=== PATIENT | female | born 1945 | race Caucasian/White ===

== ENCOUNTER 2018-07-25 19:27 | Inpatient (IN) | payer MEDICARE, OTHER ==
[~2018-07-25] VITALS: Ht 149.9 cm; Wt 52.4 kg
[2018-07-25] MEDS ORDERED: SODIUM CHLORIDE 0.9% 1,000ML IVBOLUS ONE (20:00)
[2018-07-25] MEDS ORDERED: ACETAMINOPHEN 325 MG TABLET PO ONE (20:00)
[2018-07-25] MEDS ORDERED: SODIUM CHLORIDE FLUSH 10ML SYR IVF ONE (20:00)
[2018-07-25 20:06] LABS: BASOPHILS # (AUTO) 0.04 x10^3/uL (0-0.1); BASOPHILS % (AUTO) 1 % (0-1); EOSINOPHILS # (AUTO) 0.07 x10^3/uL (0-0.4); EOSINOPHILS % (AUTO) 1 % (1-7); LYMPHOCYTES # (AUTO) 1.12 x10^3/uL (1-3.4); LYMPHOCYTES % (AUTO) 15 % (22-44); MD NO; MEAN CORPUSCULAR HEMOGLOBIN 32.6 pg (27.0-34.8); MEAN CORPUSCULAR HGB CONC 32.4 g/dL (32.4-35.8); MEAN CORPUSCULAR VOLUME 100.7 fL (80-100); MEAN PLATELET VOLUME 7.5 fL (7.4-10.4); MONOCYTES % (AUTO) 13 % (2-9); NEUTROPHILS % (AUTO) 71 % (42-75); PLATELET COUNT 309 x10^3/uL (130-400); RED CELL DISTRIBUTION WIDTH 13.2 % (9.6-15.2)
[2018-07-25] MEDS ORDERED: ACETAMINOPHEN 325 MG TABLET ONE (20:14)
[2018-07-25 20:18] LABS: ALBUMIN 3.9 g/dL (3.4-5.0); ANION GAP 7 mmol/L (5-15); CALCIUM 8.6 mg/dL (8.5-10.1); CHLORIDE 106 mmol/L (98-107)
--- NOTE | 2018-07-25 20:20 | NUR ---
IVs STARTED. BLOOD CULTURES HAVE BEEN DRAWN. PT PLACED ON CARDIAC AND VITALS MONITORS. PT IN HOSPITAL GOWN. ORDERED FLUIDS AND MEDS GIVEN. CALL LIGHT WITHIN REACH.
[2018-07-25] MEDS ORDERED: TIOT4MIS5 INH (20:21)
[2018-07-25 20:23] LABS: ALANINE AMINOTRANSFERASE 23 U/L (12-78); ALKALINE PHOSPHATASE 66 U/L (45-117); BILIRUBIN,TOTAL 0.3 mg/dL (0.2-1.0); CREATININE 1.24 mg/dL (0.55-1.02); TOTAL PROTEIN 7.4 g/dL (6.4-8.2); TROPONIN I < 0.015 ng/mL (0.000-0.045)
--- NOTE | 2018-07-25 21:00 | NUR ---
PT NOT FAMILIAR WITH MED NAMES AND DOSES. MED REQ UPDATED BEST POSSIBLE AT THIS TIME.
[2018-07-25] MEDS ORDERED: AZITHROMYCIN 500 MG in SODIUM CHLORIDE 0.9% 250 ML IV ONE (21:30)
[2018-07-25] MEDS ORDERED: CEFTRIAXONE PMX 1GM/50ML 50 ML ONE (21:34)
--- NOTE | 2018-07-25 21:50 | NUR ---
ABX STARTED. PT ABLE TO AMBULATE TO BATHROOM ON HER OWN STEADILY. PT TO BE ADMITTED, PT AWARE. WILL CONTINUE TO MONITOR.
[2018-07-25] MEDS ORDERED: CEFTRIAXONE PMX 1GM/50ML 50 ML IVPB ONE (22:30)
--- NOTE | 2018-07-25 22:41 | NUR ---
ABX CONTINUE TO INFUSE. PT AWAITING ROOM. CALL LIGHT WITHIN REACH. PT GIVEN HEATER HOSE FOR COMFORT SHE ALREADY HAS 2 BLANKETS. BIALT BEDRAILS UP. WILL CONTINUE TO MONITOR.
--- NOTE | 2018-07-25 23:09 | NUR ---
REPORT TO JESS TREVIZO FOR ROOM [phone]
[2018-07-26] MEDS ORDERED: NITROGLYCERIN 0.4 MG/SPRAY SL PRN
[2018-07-26] MEDS ORDERED: ACETAMINOPHEN 325 MG TABLET PO PRN
[2018-07-26] MEDS ORDERED: NITROGLYCERIN 0.4 MG BOTTLE (25 TABS) SL PRN
[2018-07-26] MEDS ORDERED: ONDANSETRON 2MG/ML, 2ML IVPush PRN
[2018-07-26] MEDS ORDERED: hydrALAzine 20 MG/ML, 1ML IVPush PRN
[2018-07-26] MEDS ORDERED: morphine SULFATE 10 MG/ML, 1ML IVPush PRN
[2018-07-26] MEDS ORDERED: ALEN70SO3 PO (00:22)
[2018-07-26] MEDS ORDERED: ATOR20TA86 PO (00:22)
[2018-07-26] MEDS ORDERED: OMEP20CA14 PO (00:22)
[2018-07-26] MEDS ORDERED: CHOL10003 PO (00:22)
[2018-07-26 00:26] VITALS: BP 129/75
[2018-07-26] MEDS ORDERED: ALEN70TA6 PO (00:27)
[2018-07-26] MEDS: LACTATED RINGERS 1,000 ML IV SCH ×2 (00:46→12:11)
[2018-07-26] MEDS: HEPARIN 5,000 UNITS/ML, 1ML SQ SCH ×3 (00:46→17:10)
[2018-07-26 00:57] LABS: TROPONIN I < 0.015 ng/mL (0.000-0.045)
[2018-07-26] MEDS: IPRATROPIUM 0.5 MG/2.5 ML INHA NPPB SCH ×4 (01:00→19:00)
[2018-07-26 06:07] LABS: ANION GAP 6 mmol/L (5-15); CALCIUM 8.1 mg/dL (8.5-10.1); CHLORIDE 111 mmol/L (98-107)
[2018-07-26 06:12] LABS: CREATININE 0.94 mg/dL (0.55-1.02); TROPONIN I < 0.015 ng/mL (0.000-0.045)
[2018-07-26] MEDS: ASPIRIN 325 MG TABLET EC PO SCH (06:13)
[2018-07-26 06:27] LABS: MEAN CORPUSCULAR HEMOGLOBIN 32.3 pg (27.0-34.8); MEAN CORPUSCULAR HGB CONC 32.4 g/dL (32.4-35.8); MEAN CORPUSCULAR VOLUME 99.6 fL (80-100); MEAN PLATELET VOLUME 7.7 fL (7.4-10.4); PLATELET COUNT 246 x10^3/uL (130-400); RED BLOOD COUNT 3.91 x10^6/uL (3.82-5.3); RED CELL DISTRIBUTION WIDTH 13.5 % (9.6-15.2)
[2018-07-26 06:43] LABS: MD YES
[2018-07-26 06:44] LABS: EOS#(MANUAL) 0.12 x10^3/uL (0.0-0.4); EOS% (MANUAL) 2 % (1-7)
[2018-07-26 06:45] LABS: LYMPH#(MANUAL) 1.18 x10^3/uL (1-3.4); LYMPHS% (MANUAL) 20 % (22-44); MONOS#(MANUAL) 1.12 x10^3/uL (0.3-2.7); MONOS% (MANUAL) 19 % (2-9); SEG#(MANUAL) 3.48 x10^3/uL (1.8-6.8); SEGS% (MANUAL) 59 % (42-75)
[2018-07-26 06:46] LABS: <PLATELET ESTIMATE> ADEQUATE; <PLT MORPHOLOGY> NORMAL PLT MORPH; <RBC MORPHOLOGY> NORMAL
[2018-07-26 06:58] VITALS: BP 149/79
[2018-07-26] MEDS: SENNA/DOCUSATE TABLET PO SCH (09:12)
[2018-07-26] MEDS: FAMOTIDINE 20 MG TABLET PO SCH (09:12)
[2018-07-26] MEDS ORDERED: IPRATROPIUM 0.5 MG/2.5 ML INHA HHN SCH (12:00)
[2018-07-26] MEDS ORDERED: ALENDRONATE 70 MG TABLET PO SCH (12:00)
[2018-07-26] MEDS: KETOROLAC 30 MG/1 ML IM PRN ×2 (12:08→18:08)
[2018-07-26 14:04] VITALS: BP 121/69
[2018-07-26 19:50] VITALS: BP 132/77
[2018-07-26] MEDS: CEFTRIAXONE PMX 1GM/50ML 50 ML IV SCH (21:24)
[2018-07-26] MEDS: AZITHROMYCIN 500 MG in SODIUM CHLORIDE 0.9% 250 ML IV SCH (22:43)
[2018-07-27] MEDS: HEPARIN 5,000 UNITS/ML, 1ML SQ SCH ×2 (01:05→08:16)
[2018-07-27 02:36] VITALS: BP 134/73
[2018-07-27] MEDS: IPRATROPIUM 0.5 MG/2.5 ML INHA NPPB SCH ×2 (03:00→09:00)
[2018-07-27] MEDS: ASPIRIN 325 MG TABLET EC PO SCH (06:13)
[2018-07-27 07:58] VITALS: BP 123/74
[2018-07-27] MEDS: SENNA/DOCUSATE TABLET PO SCH (08:16)
[2018-07-27] MEDS: KETOROLAC 30 MG/1 ML IM PRN ×2 (08:16→15:04)
[2018-07-27] MEDS: FAMOTIDINE 20 MG TABLET PO SCH (08:16)
[2018-07-27] MEDS ORDERED: ATORVASTATIN 20 MG TABLET PO SCH (09:00)
[2018-07-27] MEDS ORDERED: OMEPRAZOLE 20 MG CAPSULE.DR PO SCH (09:00)
[2018-07-27] MEDS ORDERED: CHOLECALCIFEROL 1,000 UNIT TABLET PO SCH (09:00)
[2018-07-27] MEDS ORDERED: CEFD300C37 PO (10:09)
[2018-07-27] MEDS: CEFTRIAXONE PMX 1GM/50ML 50 ML IV SCH (11:19)
[2018-07-27] MEDS: AZITHROMYCIN 500 MG in SODIUM CHLORIDE 0.9% 250 ML IV SCH (14:01)
[2018-07-27] MEDS ORDERED: IPRATROPIUM 0.5 MG/2.5 ML INHA NPPB PRN (16:30)
== END 2018-07-27 16:47 | disposition home or self-care (01) | DRG 871 ==
LOC: ED 20:54 → EDIP 21:47 → 4EST 23:56 → DCLOUNGE 07-27 16:42
PROVIDERS: ADMIT Internal Medicine; ATTEND Internal Medicine
DX: A41.9 Sepsis, unspecified organism (principal); J18.9 Pneumonia, unspecified organism; N17.0 Acute kidney failure with tubular necrosis; J44.0 Chronic obstructive pulmonary disease with (acute) lower respiratory infection; E78.5 Hyperlipidemia, unspecified; K21.9 Gastro-esophageal reflux disease without esophagitis; M81.0 Age-related osteoporosis without current pathological fracture; Z66 Do not resuscitate; Z85.41 Personal history of malignant neoplasm of cervix uteri; Z87.891 Personal history of nicotine dependence; Z90.710 Acquired absence of both cervix and uterus
CPT/HCPCS: 36415; 71045; 80048; 80053; 83605; 84145; 84484; 85025; 87040; 93005; 94640; 96361; 96374; 96375; G0378; J0456; J0696; J1644; J1885; J7644; J7030; J7050; J7120